=== PATIENT | female | born 1940 | race Caucasian/White ===

== ENCOUNTER 2017-09-06 10:20 | Day surgery (SDC) | payer MEDICARE ==
[~2017-09-06 10:20] MED LIST: AMLO10 PO; ASPI325; ATOR10 PO; Bactrim Ds Tab1 EACH PO; CEPH500 PO; CITA20; CLOP75; CYCL10 PO; DIAZ5 PO; FURO40; FURO40 PO; GABA300 PO; HYDACE10B PO; HYDACE5; HYDACE5 PO; HYDR-86 PO; IBUHYD PO; LEVSOD25; LISI20 PO; METO25 PO; METO25ER; METO25ER PO; METO50; MIRT15 PO; Macrobid 100 M100 MG PO; OXYC1TAB11 PO; PRAV20; PRIM50 PO; ROPI.25 PO; ROSU10TA; SERT100 PO; TEMA30; TEMA30 PO; ZOLP10; Zofran Odt4 MG SL
== END 2017-09-06 14:32 | disposition home or self-care (01) ==
LOC: WOUND 10:20
DX: Z48.00 Encounter for change or removal of nonsurgical wound dressing (principal); T85.79XA Infection and inflammatory reaction due to other internal prosthetic devices, implants and grafts, initial encounter; I10 Essential (primary) hypertension; G47.33 Obstructive sleep apnea (adult) (pediatric)
CPT/HCPCS: G0463

== ENCOUNTER 2017-09-16 12:55 | Emergency (ER) | payer MEDICARE ==
[~2017-09-16] VITALS: Ht 154.9 cm; Wt 86.2 kg
[2017-09-16 14:18] LABS: BASOPHILS ABSOLUTE AUTO 0.03 K/mm3 (0.00-0.23); BASOPHILS PERCENT AUTO 0 % (0-2); EOSINOPHILS ABSOLUTE AUTO 0.41 K/mm3 (0.00-0.68); EOSINOPHILS PERCENT AUTO 4 % (0-6); Hematocrit 42.7 % (33.0-51.0); IMMATURE GRAN ABSOLUTE AUTO 0.01 K/mm3 (0.00-0.10); IMMATURE GRAN PERCENT AUTO 0 % (0-1); LYMPHOCYTES ABSOLUTE AUTO 2.09 K/mm3 (0.84-5.20); LYMPHOCYTES PERCENT AUTO 22 % (21-46); MONOCYTES ABSOLUTE AUTO 0.75 K/mm3 (0.16-1.47); MONOCYTES PERCENT AUTO 8 % (4-13); Mean Corpuscular HGB 30.2 pg (26.0-34.0); Mean Corpuscular HGB Conc 32.8 g/dL (31.5-36.5); Mean Corpuscular Volume 92 fL (80-100); Mean Platelet Volume 11.1 fL (9.1-12.4); NEUTROPHILS PERCENT AUTO 66 % (41-73); Platelet Count 202 K/mm3 (150-400); RDW Coefficient Variation 14.4 % (11.7-14.2); RDW Standard Deviation 48.8 fL (35.1-46.3); Red Blood Cell Count 4.63 M/mm3 (3.80-5.20); White Blood Cell Count 9.69 K/mm3 (4.00-11.30)
[2017-09-16 14:36] LABS: Alanine Aminotransfer (ALT/SGP 25 U/L (12-78); Albumin, Blood 3.6 g/dL (3.4-5.0); Albumin/Globulin Ratio 0.9 (0.8-1.8); Alk Phos 70 U/L (50-136); Anion Gap 7 mmol/L (6-16); Aspartate Aminotrans (AST/SGOT 23 U/L (12-37); Bilirubin, Total 0.7 mg/dL (0.1-1.0); Blood Urea Nitrogen 16 mg/dL (8-24); Bun/Creatinine Ratio 22.7 (12.0-20.0); CO2, Blood 27 mmol/L (21-32); Calcium, Blood 9.4 mg/dL (8.5-10.1); Chloride, Blood 109 mmol/L (98-108); Creatinine, Blood 0.71 mg/dL (0.40-1.00); Globulin, Blood 4.2 g/dL (2.2-4.0); Glomerular Filtration Rate >60 (60-); Glucose, Blood 127 mg/dL (70-99); Potassium, Blood 3.9 mmol/L (3.5-5.5); Sodium, Blood 143 mmol/L (136-145); Total Protein, Blood 7.8 g/dL (6.4-8.2)
[2017-09-16] MEDS ORDERED: Cleocin HCl300 MG PO (17:16)
== END 2017-09-16 17:43 | disposition home or self-care (01) ==
LOC: ER 12:55
PROVIDERS: Physician Assistant
DX: T81.4XXA Infection following a procedure, initial encounter (principal); N61.0 Mastitis without abscess; I10 Essential (primary) hypertension; Z90.13 Acquired absence of bilateral breasts and nipples; Z88.8 Allergy status to other drugs, medicaments and biological substances; Z88.5 Allergy status to narcotic agent; Z79.899 Other long term (current) drug therapy
CPT/HCPCS: 36415; 76642; 80053; 85025; 99284

== ENCOUNTER 2017-09-17 14:32 | Day surgery (SDC) | payer MEDICARE ==
[~2017-09-17 14:32] MED LIST changes: +Cleocin HCl300 MG PO
== END 2017-09-17 15:57 | disposition home or self-care (01) ==
LOC: WOUND 14:32
DX: Z48.00 Encounter for change or removal of nonsurgical wound dressing (principal); T85.79XA Infection and inflammatory reaction due to other internal prosthetic devices, implants and grafts, initial encounter; I10 Essential (primary) hypertension; G47.33 Obstructive sleep apnea (adult) (pediatric)
CPT/HCPCS: 87070; 87075; 87205; G0463

== ENCOUNTER 2017-09-24 09:40 | Day surgery (SDC) | payer MEDICARE | END 2017-09-24 11:09 | disposition home or self-care (01) | LOC: WOUND 09:40 | DX: Z48.00 Encounter for change or removal of nonsurgical wound dressing (principal); T85.79XA Infection and inflammatory reaction due to other internal prosthetic devices, implants and grafts, initial encounter; I10 Essential (primary) hypertension; G47.33 Obstructive sleep apnea (adult) (pediatric) | CPT/HCPCS: G0463 ==

== ENCOUNTER 2017-10-01 14:24 | Day surgery (SDC) | payer MEDICARE | END 2017-10-01 16:26 | disposition home or self-care (01) | LOC: WOUND 14:24 | DX: Z48.00 Encounter for change or removal of nonsurgical wound dressing (principal); T85.79XA Infection and inflammatory reaction due to other internal prosthetic devices, implants and grafts, initial encounter; I10 Essential (primary) hypertension; G47.33 Obstructive sleep apnea (adult) (pediatric) | CPT/HCPCS: G0463 ==

== ENCOUNTER 2017-11-12 03:33 | Day surgery (SDC) | payer MEDICARE | END 2017-11-12 23:18 | disposition home or self-care (01) | LOC: WOUND 03:33 | DX: Z48.00 Encounter for change or removal of nonsurgical wound dressing (principal); T85.79XA Infection and inflammatory reaction due to other internal prosthetic devices, implants and grafts, initial encounter; I10 Essential (primary) hypertension; G47.33 Obstructive sleep apnea (adult) (pediatric) | CPT/HCPCS: G0463 ==

== ENCOUNTER 2017-12-03 12:26 | Inpatient (IN) | payer MEDICARE ==
[~2017-12-03] VITALS: Ht 154.9 cm; Wt 88.6 kg
[2017-12-03 13:01] LABS: Source, Urine Catheter
[2017-12-03 13:10] LABS: BASOPHILS ABSOLUTE AUTO 0.03 K/mm3 (0.00-0.23); BASOPHILS PERCENT AUTO 0 % (0-2); Bilirubin, Urine Neg (Neg); Blood, Urine 1+ (Neg); EOSINOPHILS ABSOLUTE AUTO 0.17 K/mm3 (0.00-0.68); EOSINOPHILS PERCENT AUTO 2 % (0-6); Glucose Qualitative, Urine Neg (Neg); Hematocrit 42.6 % (33.0-51.0); Hemoglobin 13.9 g/dL (11.5-16.0); IMMATURE GRAN ABSOLUTE AUTO 0.03 K/mm3 (0.00-0.10); IMMATURE GRAN PERCENT AUTO 0 % (0-1); Ketones, Urine Neg (Neg); LYMPHOCYTES ABSOLUTE AUTO 1.08 K/mm3 (0.84-5.20); LYMPHOCYTES PERCENT AUTO 11 % (21-46); Leukocyte Esterase, Urine Neg (Neg); MONOCYTES ABSOLUTE AUTO 0.72 K/mm3 (0.16-1.47); MONOCYTES PERCENT AUTO 7 % (4-13); Mean Corpuscular HGB 29.5 pg (26.0-34.0); Mean Corpuscular HGB Conc 32.6 g/dL (31.5-36.5); Mean Corpuscular Volume 90 fL (80-100); Mean Platelet Volume 11.7 fL (9.1-12.4); NEUTROPHILS ABSOLUTE AUTO 7.75 K/mm3 (1.96-9.15); NEUTROPHILS PERCENT AUTO 79 % (41-73); Nitrite, Urine Neg (Neg); Platelet Count 152 K/mm3 (150-400); Protein, Urine 2+ (Neg); RDW Coefficient Variation 12.9 % (11.7-14.2); RDW Standard Deviation 42.8 fL (35.1-46.3); Red Blood Cell Count 4.71 M/mm3 (3.80-5.20); Urobilinogen, Urine NORM (Normal); White Blood Cell Count 9.78 K/mm3 (4.00-11.30)
[2017-12-03 13:22] LABS: Alanine Aminotransfer (ALT/SGP 24 U/L (12-78); Albumin, Blood 3.6 g/dL (3.4-5.0); Albumin/Globulin Ratio 0.9 (0.8-1.8); Alk Phos 67 U/L (50-136); Anion Gap 8 mmol/L (6-16); Aspartate Aminotrans (AST/SGOT 24 U/L (12-37); Bilirubin, Total 0.9 mg/dL (0.1-1.0); Blood Urea Nitrogen 12 mg/dL (8-24); Bun/Creatinine Ratio 14.5 (12.0-20.0); CO2, Blood 26 mmol/L (21-32); Calcium, Blood 9.1 mg/dL (8.5-10.1); Chloride, Blood 108 mmol/L (98-108); Creatinine, Blood 0.83 mg/dL (0.40-1.00); Globulin, Blood 4.2 g/dL (2.2-4.0); Glomerular Filtration Rate >60 (60-); Glucose, Blood 152 mg/dL (70-99); Potassium, Blood 4.1 mmol/L (3.5-5.5); Sodium, Blood 142 mmol/L (136-145); Total Protein, Blood 7.8 g/dL (6.4-8.2)
[2017-12-03 13:23] LABS: Appearance, Urine Clear (Clear); Color, Urine Yellow (P-Yellow)
[2017-12-03 13:26] LABS: Bacteria Not Seen /hpf; International Normalized Ratio 1.02; Prothrombin Time Results 10.6 Sec (9.7-11.5); Red Blood Cells, Urine 0-2 /hpf (0-2); Squamous Epithelial Cells Few /hpf (Few); White Blood Cells, Urine Not Seen /hpf (0-5)
[2017-12-03] MEDS ORDERED: Prinivil10 MG PO (13:53)
[2017-12-03] MEDS ORDERED: FURO40 PO (13:53)
[2017-12-03] MEDS ORDERED: Mirtazapine45 M1 PO (13:53)
[2017-12-03] MEDS ORDERED: AMLO5 PO (14:45)
[2017-12-03] MEDS ORDERED: NAPR500ERA PO (14:46)
[2017-12-03] MEDS ORDERED: LIDO700A20 TOP (14:47)
[2017-12-03] MEDS ORDERED: Prilosec Otc20 MG PO (14:47)
[2017-12-03] MEDS ORDERED: SERT50 PO (14:48)
[2017-12-03] MEDS ORDERED: TEMA15 PO (14:49)
[2017-12-03 16:29] LABS: Influenza A Negative (NEGATIVE); Influenza B Negative (NEGATIVE)
[2017-12-03] MEDS ORDERED: GABA100 PO (20:28)
[2017-12-04 04:34] LABS: Hematocrit 34.1 % (33.0-51.0); Hemoglobin 11.3 g/dL (11.5-16.0); Mean Corpuscular HGB 30.1 pg (26.0-34.0); Mean Corpuscular HGB Conc 33.1 g/dL (31.5-36.5); Mean Corpuscular Volume 91 fL (80-100); Mean Platelet Volume 11.5 fL (9.1-12.4); Platelet Count 118 K/mm3 (150-400); RDW Coefficient Variation 13.1 % (11.7-14.2); Red Blood Cell Count 3.76 M/mm3 (3.80-5.20); White Blood Cell Count 7.67 K/mm3 (4.00-11.30)
[2017-12-04 04:50] LABS: Anion Gap 7 mmol/L (6-16); Blood Urea Nitrogen 13 mg/dL (8-24); Bun/Creatinine Ratio 17.9 (12.0-20.0); CO2, Blood 27 mmol/L (21-32); Calcium, Blood 8.4 mg/dL (8.5-10.1); Chloride, Blood 110 mmol/L (98-108); Creatinine, Blood 0.73 mg/dL (0.40-1.00); Glomerular Filtration Rate >60 (60-); Glucose, Blood 124 mg/dL (70-99); Potassium, Blood 3.7 mmol/L (3.5-5.5); Sodium, Blood 144 mmol/L (136-145)
[2017-12-05] MEDS ORDERED: CEFU500T30 PO (13:05)
[2017-12-05] MEDS ORDERED: AZIT500 PO (13:05)
== END 2017-12-05 17:21 | disposition home or self-care (01) | DRG 193 ==
LOC: ER 12:26 → PCU 14:07 → MEDS 18:15 → PCU 18:35 → MEDS 12-04 12:30 → ENPENDDIS 12-05 10:00 → MEDS 12-05 17:21
PROVIDERS: Internal Medicine; Physician Assistant
PROC: 3E0234Z Introduction of Serum, Toxoid and Vaccine into Muscle, Percutaneous Approach (ICD-10-PCS; principal; 2017-12-03)
DX: J18.9 Pneumonia, unspecified organism (principal); G92 Toxic encephalopathy; E87.2 Acidosis; E86.0 Dehydration; G89.4 Chronic pain syndrome; I10 Essential (primary) hypertension; G47.33 Obstructive sleep apnea (adult) (pediatric); E78.5 Hyperlipidemia, unspecified; R53.1 Weakness; M54.9 Dorsalgia, unspecified; Z91.19 Patient's noncompliance with other medical treatment and regimen; Z23 Encounter for immunization
CPT/HCPCS: 36415; 71046; 80048; 80053; 81001; 83605; 84145; 85025; 85027; 85610; 85730; 87040; 87086; 87804; 93005; 93010; 94760; 96361; 96365; 96368; 96375; 97161; 99285; G8978; G8979; G8980; J0360; J0456; J0696; J1650; J1885; J7030; J7050

== ENCOUNTER 2017-12-13 17:08 | Emergency (ER) | payer MEDICARE ==
[~2017-12-13] VITALS: Ht 152.4 cm; Wt 84.4 kg
[~2017-12-13 17:08] MED LIST changes: +AMLO5 PO; +AZIT500 PO; +CEFU500T30 PO; +GABA100 PO; +LIDO700A20 TOP; +Mirtazapine45 M1 PO; +NAPR500ERA PO; +Prilosec Otc20 MG PO; +Prinivil10 MG PO; +SERT50 PO; +TEMA15 PO
[2017-12-13 18:12] LABS: Source, Urine Clean Catch
[2017-12-13 18:29] LABS: Appearance, Urine Hazy (Clear); Blood, Urine 1+ (Neg); Glucose Qualitative, Urine Neg (Neg); Ketones, Urine Neg (Neg); Leukocyte Esterase, Urine Neg (Neg); Nitrite, Urine Pos (Neg); Protein, Urine 3+ (Neg); Specific Gravity, Urine 1.015 (1.003-1.022); Urobilinogen, Urine 3+ (Normal)
[2017-12-13 19:04] LABS: Bilirubin, Urine 3+ (Neg); Color, Urine Orange (P-Yellow)
[2017-12-13 19:06] LABS: Bacteria Few /hpf; Squamous Epithelial Cells Mod /hpf (Few)
== END 2017-12-13 19:18 | disposition home or self-care (01) ==
LOC: ER 17:08
PROVIDERS: Physician Assistant
DX: R39.15 Urgency of urination (principal); I10 Essential (primary) hypertension; E78.5 Hyperlipidemia, unspecified; Z88.8 Allergy status to other drugs, medicaments and biological substances; Z88.5 Allergy status to narcotic agent; Z79.899 Other long term (current) drug therapy
CPT/HCPCS: 81001; 87086; 99283

== ENCOUNTER → 2017-12-16 | Outpatient (CLI) | payer MEDICARE | END | disposition home or self-care (01) | LOC: OLS 17:12 → LAB SHORT 17:12 | DX: R19.7 Diarrhea, unspecified (principal) | CPT/HCPCS: 87493 ==

== ENCOUNTER 2018-02-27 02:49 | Emergency (ER) | payer MEDICARE ==
[~2018-02-27] VITALS: Ht 152.4 cm; Wt 84.4 kg
[2018-02-27 03:51] LABS: Base Excess Venous 1.9 mmol/L; Bicarbonate Venous 25.4 mmol/L (24.0-30.0); PCO2 Venous 48.1 mmHg (38-42); PO2 Venous 70.8 mmHg (38-42); pH Blood Venous 7.36 (7.34-7.37)
[2018-02-27 03:52] LABS: BASOPHILS ABSOLUTE AUTO 0.04 K/mm3 (0.00-0.23); BASOPHILS PERCENT AUTO 1 % (0-2); EOSINOPHILS ABSOLUTE AUTO 0.36 K/mm3 (0.00-0.68); EOSINOPHILS PERCENT AUTO 5 % (0-6); Hematocrit 40.4 % (33.0-51.0); Hemoglobin 13.3 g/dL (11.5-16.0); IMMATURE GRAN ABSOLUTE AUTO 0.01 K/mm3 (0.00-0.10); IMMATURE GRAN PERCENT AUTO 0 % (0-1); LYMPHOCYTES ABSOLUTE AUTO 1.91 K/mm3 (0.84-5.20); LYMPHOCYTES PERCENT AUTO 28 % (21-46); MONOCYTES PERCENT AUTO 9 % (4-13); Mean Corpuscular HGB Conc 32.9 g/dL (31.5-36.5); Mean Corpuscular Volume 91 fL (80-100); Mean Platelet Volume 10.8 fL (9.1-12.4); NEUTROPHILS ABSOLUTE AUTO 4.03 K/mm3 (1.96-9.15); NEUTROPHILS PERCENT AUTO 58 % (41-73); Platelet Count 182 K/mm3 (150-400); RDW Coefficient Variation 13.4 % (11.7-14.2); RDW Standard Deviation 44.7 fL (35.1-46.3); Red Blood Cell Count 4.44 M/mm3 (3.80-5.20); White Blood Cell Count 6.95 K/mm3 (4.00-11.30)
[2018-02-27 04:13] LABS: Alanine Aminotransfer (ALT/SGP 24 U/L (12-78); Albumin, Blood 3.7 g/dL (3.4-5.0); Albumin/Globulin Ratio 0.9 (0.8-1.8); Alk Phos 67 U/L (50-136); Anion Gap 8 mmol/L (6-16); Aspartate Aminotrans (AST/SGOT 23 U/L (12-37); Bilirubin, Total 0.8 mg/dL (0.1-1.0); Blood Urea Nitrogen 19 mg/dL (8-24); Bun/Creatinine Ratio 22.6 (12.0-20.0); CO2, Blood 27 mmol/L (21-32); Chloride, Blood 108 mmol/L (98-108); Creatinine, Blood 0.84 mg/dL (0.40-1.00); Globulin, Blood 4.2 g/dL (2.2-4.0); Glomerular Filtration Rate >60 (60-); Glucose, Blood 137 mg/dL (70-99); Potassium, Blood 3.6 mmol/L (3.5-5.5); Sodium, Blood 143 mmol/L (136-145); Total Protein, Blood 7.9 g/dL (6.4-8.2); Troponin I <0.015 ng/mL (0.000-0.040)
== END 2018-02-27 04:57 | disposition home or self-care (01) ==
LOC: ER 02:49
PROVIDERS: Emergency Medicine
DX: I11.0 Hypertensive heart disease with heart failure (principal); I50.9 Heart failure, unspecified; R91.8 Other nonspecific abnormal finding of lung field; R09.02 Hypoxemia; G47.33 Obstructive sleep apnea (adult) (pediatric); Z88.5 Allergy status to narcotic agent; Z88.8 Allergy status to other drugs, medicaments and biological substances; Z79.899 Other long term (current) drug therapy; Z79.891 Long term (current) use of opiate analgesic; Z79.2 Long term (current) use of antibiotics; E78.5 Hyperlipidemia, unspecified
CPT/HCPCS: 36415; 80053; 82803; 83880; 84484; 85025; 93005; 93010; 99284

== ENCOUNTER → 2018-03-06 | Outpatient (CLI) | payer MEDICARE ==
[2018-03-06 13:53] LABS: Protein, Urine Quantitative 15.1 mg/dL (0.0-11.9)
[2018-03-06 14:44] LABS: Microalbumin, Urine Quant. 44.4 mg/L (0.000-20.000)
== END | disposition home or self-care (01) ==
LOC: OLS 07:30 → LAB SHORT 07:30 → LAB FUT 03-03 12:10
PROVIDERS: Internal Medicine Nephrology
DX: N18.2 Chronic kidney disease, stage 2 (mild) (principal); D63.1 Anemia in chronic kidney disease; R73.09 Other abnormal glucose; R94.6 Abnormal results of thyroid function studies; R94.5 Abnormal results of liver function studies; R76.9 Abnormal immunological finding in serum, unspecified; E78.00 Pure hypercholesterolemia, unspecified; E55.9 Vitamin D deficiency, unspecified; N25.81 Secondary hyperparathyroidism of renal origin
CPT/HCPCS: 81050; 82043; 84156

== ENCOUNTER → 2018-03-28 | Outpatient (CLI) | payer MEDICARE ==
[2018-03-28 16:13] LABS: Source, Urine Voided
[2018-03-28 20:00] LABS: Appearance, Urine Cloudy (Clear); Bilirubin, Urine Neg (Neg); Blood, Urine Neg (Neg); Color, Urine Yellow (P-Yellow); Glucose Qualitative, Urine Neg (Neg); Ketones, Urine Neg (Neg); Leukocyte Esterase, Urine 1+ (Neg); Nitrite, Urine Neg (Neg); Protein, Urine 1+ (Neg); Urobilinogen, Urine NORM (Normal)
[2018-03-28 20:10] LABS: Bacteria Few /hpf; Squamous Epithelial Cells Few /hpf (Few)
[2018-03-28 20:11] LABS: Amorphous Heavy (0-Heavy)
== END | disposition home or self-care (01) ==
LOC: LAB 16:11 → LAB SHORT 16:11 → LAB FUT 03-26 16:20
PROVIDERS: Internal Medicine
DX: N39.0 Urinary tract infection, site not specified (principal)
CPT/HCPCS: 81001; 87086

== ENCOUNTER 2018-11-05 10:46 | Emergency (ER) | payer MEDICARE ==
[~2018-11-05] VITALS: Ht 152.4 cm; Wt 81.7 kg
[2018-11-05] MEDS ORDERED: Percocet 10-321 EACH PO (11:59)
== END 2018-11-05 12:10 | disposition home or self-care (01) ==
LOC: ER 10:46
DX: Z76.0 Encounter for issue of repeat prescription (principal); I10 Essential (primary) hypertension; R01.1 Cardiac murmur, unspecified

== ENCOUNTER 2019-01-05 10:29 | Emergency (ER) | payer MEDICARE ==
[~2019-01-05] VITALS: Ht 152.4 cm; Wt 81.7 kg
[~2019-01-05 10:29] MED LIST changes: +Percocet 10-321 EACH PO
[2019-01-05 11:04] LABS: BASOPHILS ABSOLUTE AUTO 0.06 K/mm3 (0.00-0.23); BASOPHILS PERCENT AUTO 1 % (0-2); EOSINOPHILS ABSOLUTE AUTO 0.09 K/mm3 (0.00-0.68); EOSINOPHILS PERCENT AUTO 1 % (0-6); Hematocrit 44.8 % (33.0-51.0); Hemoglobin 14.9 g/dL (11.5-16.0); IMMATURE GRAN ABSOLUTE AUTO 0.02 K/mm3 (0.00-0.10); IMMATURE GRAN PERCENT AUTO 0 % (0-1); LYMPHOCYTES ABSOLUTE AUTO 0.96 K/mm3 (0.84-5.20); LYMPHOCYTES PERCENT AUTO 13 % (21-46); MONOCYTES ABSOLUTE AUTO 0.31 K/mm3 (0.16-1.47); MONOCYTES PERCENT AUTO 4 % (4-13); Mean Corpuscular HGB Conc 33.3 g/dL (31.5-36.5); Mean Corpuscular Volume 90 fL (80-100); Mean Platelet Volume 10.1 fL (9.1-12.4); NEUTROPHILS ABSOLUTE AUTO 5.97 K/mm3 (1.96-9.15); NEUTROPHILS PERCENT AUTO 81 % (41-73); Platelet Count 257 K/mm3 (150-400); RDW Coefficient Variation 13.8 % (11.7-14.2); RDW Standard Deviation 45.1 fL (35.1-46.3); Red Blood Cell Count 4.96 M/mm3 (3.80-5.20); White Blood Cell Count 7.41 K/mm3 (4.00-11.30)
[2019-01-05 11:22] LABS: Alanine Aminotransfer (ALT/SGP 21 U/L (12-78); Albumin, Blood 4.4 g/dL (3.4-5.0); Albumin/Globulin Ratio 0.9 (0.8-1.8); Alk Phos 81 U/L (50-136); Anion Gap 9 mmol/L (6-16); Aspartate Aminotrans (AST/SGOT 20 U/L (12-37); Bilirubin, Total 2.1 mg/dL (0.1-1.0); Blood Urea Nitrogen 8 mg/dL (8-24); Bun/Creatinine Ratio 10.4 (12.0-20.0); CO2, Blood 28 mmol/L (21-32); Calcium, Blood 9.9 mg/dL (8.5-10.1); Chloride, Blood 102 mmol/L (98-108); Creatinine, Blood 0.77 mg/dL (0.40-1.00); Globulin, Blood 4.8 g/dL (2.2-4.0); Glomerular Filtration Rate >60 (60-); Glucose, Blood 183 mg/dL (70-99); Potassium, Blood 3.7 mmol/L (3.5-5.5); Sodium, Blood 139 mmol/L (136-145); Total Protein, Blood 9.2 g/dL (6.4-8.2); Troponin I <0.015 ng/mL (0.000-0.040)
[2019-01-05 15:13] LABS: Source, Urine Clean Catch
[2019-01-05 15:20] LABS: Blood, Urine 2+ (Neg); Glucose Qualitative, Urine Neg (Neg); Ketones, Urine 1+ (Neg); Leukocyte Esterase, Urine 2+ (Neg); Nitrite, Urine Pos (Neg); Protein, Urine 4+ (Neg); Urobilinogen, Urine 1+ (Normal)
[2019-01-05] MEDS ORDERED: ONDA4ODT MM (15:37)
[2019-01-05] MEDS ORDERED: LEVFLO500 PO (15:37)
[2019-01-05 15:51] LABS: Bilirubin, Urine 1+ (Neg)
[2019-01-05 15:52] LABS: Appearance, Urine Hazy (Clear); Color, Urine Amber (P-Yellow)
[2019-01-05 15:57] LABS: Bacteria Mod /hpf; Squamous Epithelial Cells Mod /hpf (Few)
[2019-01-05 16:00] LABS: Mucus Light ({null, 0-Heavy})
[2019-01-05 16:06] LABS: Red Blood Cells, Urine 0-2 /hpf (0-2)
== END 2019-01-05 16:00 | disposition home or self-care (01) ==
LOC: ER 10:29
PROVIDERS: Emergency Medicine
DX: J18.1 Lobar pneumonia, unspecified organism (principal); Z88.5 Allergy status to narcotic agent; Z88.8 Allergy status to other drugs, medicaments and biological substances; Z79.899 Other long term (current) drug therapy; Z87.891 Personal history of nicotine dependence; I10 Essential (primary) hypertension; E78.5 Hyperlipidemia, unspecified
CPT/HCPCS: 36415; 71046; 80053; 81001; 84484; 85025; 87086; 93005; 93010; 99285-25

== ENCOUNTER 2019-05-13 08:46 | Emergency (ER) | payer MEDICARE ==
[~2019-05-13] VITALS: Ht 152.4 cm; Wt 81.7 kg
[~2019-05-13 08:46] MED LIST changes: -ATOR10 PO; -GABA100 PO; +LEVFLO500 PO; -MIRT15 PO; +ONDA4ODT MM; -OXYC1TAB11 PO
[2019-05-13 09:04] LABS: Source, Urine Clean Catch
[2019-05-13] MEDS ORDERED: METF500 PO (09:09)
[2019-05-13] MEDS ORDERED: Bactrim Ds Tab1 EACH PO (09:10)
[2019-05-13 09:13] LABS: Blood, Urine 1+ (Neg); Glucose Qualitative, Urine Neg (Neg); Ketones, Urine Neg (Neg); Leukocyte Esterase, Urine 1+ (Neg); Nitrite, Urine Pos (Neg); Protein, Urine 2+ (Neg); Urobilinogen, Urine 2+ (Normal)
[2019-05-13 09:16] LABS: BASOPHILS ABSOLUTE AUTO 0.05 K/mm3 (0.00-0.23); BASOPHILS PERCENT AUTO 1 % (0-2); EOSINOPHILS ABSOLUTE AUTO 0.18 K/mm3 (0.00-0.68); EOSINOPHILS PERCENT AUTO 2 % (0-6); Hematocrit 42.5 % (33.0-51.0); Hemoglobin 14.3 g/dL (11.5-16.0); IMMATURE GRAN ABSOLUTE AUTO 0.02 K/mm3 (0.00-0.10); IMMATURE GRAN PERCENT AUTO 0 % (0-1); LYMPHOCYTES ABSOLUTE AUTO 1.27 K/mm3 (0.84-5.20); LYMPHOCYTES PERCENT AUTO 16 % (21-46); MONOCYTES ABSOLUTE AUTO 0.42 K/mm3 (0.16-1.47); MONOCYTES PERCENT AUTO 5 % (4-13); Mean Corpuscular HGB 30.5 pg (26.0-34.0); Mean Corpuscular HGB Conc 33.6 g/dL (31.5-36.5); Mean Corpuscular Volume 91 fL (80-100); Mean Platelet Volume 11.2 fL (9.1-12.4); NEUTROPHILS PERCENT AUTO 75 % (41-73); Platelet Count 197 K/mm3 (150-400); RDW Coefficient Variation 13.8 % (11.7-14.2); RDW Standard Deviation 45.6 fL (35.1-46.3); Red Blood Cell Count 4.69 M/mm3 (3.80-5.20); White Blood Cell Count 7.74 K/mm3 (4.00-11.30)
[2019-05-13 09:34] LABS: Albumin, Blood 4.2 g/dL (3.4-5.0); Bilirubin, Total 0.9 mg/dL (0.1-1.0); Bun/Creatinine Ratio 24.5 (12.0-20.0); Creatinine, Blood 1.06 mg/dL (0.40-1.00); Globulin, Blood 4.1 g/dL (2.2-4.0); Potassium, Blood 4.8 mmol/L (3.5-5.5); Total Protein, Blood 8.3 g/dL (6.4-8.2)
[2019-05-13 09:44] LABS: Appearance, Urine Clear (Clear); Bilirubin, Urine 2+ (Neg); Color, Urine Orange (P-Yellow)
[2019-05-13 09:46] LABS: Bacteria Few /hpf; Red Blood Cells, Urine 0-2 /hpf (0-2); Squamous Epithelial Cells Many /hpf (Few)
[2019-05-13 09:47] LABS: Mucus Light ({null, 0-Heavy}); Transitional Epithelial Cells Few /hpf ({null, 0-Rare})
[2019-05-13] MEDS ORDERED: Macrobid 100 M100 MG PO (09:53)
[2019-05-13] MEDS ORDERED: ONDA4ODT MM (11:09)
== END 2019-05-13 11:18 | disposition home or self-care (01) ==
LOC: ER 08:46
PROVIDERS: Emergency Medicine
DX: R11.2 Nausea with vomiting, unspecified (principal); R19.7 Diarrhea, unspecified; T38.3X5A Adverse effect of insulin and oral hypoglycemic [antidiabetic] drugs, initial encounter; T36.8X5A Adverse effect of other systemic antibiotics, initial encounter; N39.0 Urinary tract infection, site not specified; I10 Essential (primary) hypertension; Z88.5 Allergy status to narcotic agent; Z88.8 Allergy status to other drugs, medicaments and biological substances; Z79.84 Long term (current) use of oral hypoglycemic drugs; Z79.899 Other long term (current) drug therapy
CPT/HCPCS: 36415; 80053; 81001; 83036; 83690; 85025; 96361; 96374; 99284-25; J2405; J7030

== ENCOUNTER 2019-06-12 12:09 | Observation (INO) | payer MEDICARE ==
[~2019-06-12] VITALS: Ht 152.4 cm; Wt 84.0 kg
[~2019-06-12 12:09] MED LIST changes: +METF500 PO
[2019-06-12 15:51] LABS: BASOPHILS ABSOLUTE AUTO 0.04 K/mm3 (0.00-0.23); BASOPHILS PERCENT AUTO 1 % (0-2); EOSINOPHILS ABSOLUTE AUTO 0.15 K/mm3 (0.00-0.68); EOSINOPHILS PERCENT AUTO 2 % (0-6); Hematocrit 41.5 % (33.0-51.0); Hemoglobin 13.8 g/dL (11.5-16.0); IMMATURE GRAN ABSOLUTE AUTO 0.02 K/mm3 (0.00-0.10); IMMATURE GRAN PERCENT AUTO 0 % (0-1); LYMPHOCYTES ABSOLUTE AUTO 2.04 K/mm3 (0.84-5.20); LYMPHOCYTES PERCENT AUTO 29 % (21-46); MONOCYTES ABSOLUTE AUTO 0.61 K/mm3 (0.16-1.47); MONOCYTES PERCENT AUTO 9 % (4-13); Mean Corpuscular HGB 30.7 pg (26.0-34.0); Mean Corpuscular HGB Conc 33.3 g/dL (31.5-36.5); Mean Corpuscular Volume 92 fL (80-100); Mean Platelet Volume 12.2 fL (9.1-12.4); NEUTROPHILS ABSOLUTE AUTO 4.26 K/mm3 (1.96-9.15); NEUTROPHILS PERCENT AUTO 60 % (41-73); Platelet Count 178 K/mm3 (150-400); RDW Standard Deviation 43.2 fL (35.1-46.3); Red Blood Cell Count 4.49 M/mm3 (3.80-5.20); White Blood Cell Count 7.12 K/mm3 (4.00-11.30)
[2019-06-12 16:08] LABS: Anion Gap 8 mmol/L (6-16); Blood Urea Nitrogen 25 mg/dL (8-24); Bun/Creatinine Ratio 27.6 (12.0-20.0); CO2, Blood 25 mmol/L (21-32); Calcium, Blood 10.5 mg/dL (8.5-10.1); Chloride, Blood 105 mmol/L (98-108); Creatinine, Blood 0.91 mg/dL (0.40-1.00); Glomerular Filtration Rate >60 (60-); Glucose, Blood 131 mg/dL (70-99); Potassium, Blood 4.1 mmol/L (3.5-5.5); Sodium, Blood 138 mmol/L (136-145)
[2019-06-12] MEDS ORDERED: ROPI.25 PO (19:10)
[2019-06-12] MEDS ORDERED: Mirtazapine7.5 MG PO (19:10)
[2019-06-12] MEDS ORDERED: OXYC1TAB11 PO (19:11)
[2019-06-12] MEDS ORDERED: ZESTORETIC 20-121 EA PO (19:12)
[2019-06-12] MEDS ORDERED: GABA300 PO ×2 (19:12→19:40)
[2019-06-12] MEDS ORDERED: PIOG15 PO (19:13)
[2019-06-12] MEDS ORDERED: ATOR40TA PO (19:14)
[2019-06-12] MEDS ORDERED: METO50 PO (19:39)
--- NOTE | 2019-06-12 20:32 | NUR ---
2025 PT ADMITTED TO ROOM 355 PER CART FROM ER.
[2019-06-12] MEDS ORDERED: VITAMIN D34000 UNIT PO (20:42)
[2019-06-12] MEDS ORDERED: Magnesium500 M1 PO (20:43)
[2019-06-13 01:44] LABS: Source, Urine Clean Catch
[2019-06-13 01:49] LABS: Bilirubin, Urine Neg (Neg); Blood, Urine 1+ (Neg); Glucose Qualitative, Urine Neg (Neg); Ketones, Urine 1+ (Neg); Leukocyte Esterase, Urine 1+ (Neg); Nitrite, Urine Neg (Neg); Protein, Urine 1+ (Neg); Specific Gravity, Urine 1.025 (1.003-1.022); Urobilinogen, Urine NORM (Normal)
[2019-06-13 02:00] LABS: Appearance, Urine Hazy (Clear); Color, Urine Yellow (P-Yellow)
[2019-06-13 02:01] LABS: Bacteria Mod /hpf; Mucus Light (0-Heavy); Red Blood Cells, Urine 0-2 /hpf (0-2); Squamous Epithelial Cells Mod /hpf (Few)
--- NOTE | 2019-06-13 04:19 | NUR ---
SHIFT SUMMARY: 79 Y/O FEMALE HAD RESTLESS NIGHT AT TIMES WITH FREQUENT REQUESTS FOR PAIN MEDS, FENTANYL 50MCG IVP GIVEN X 2 AND VALIUM 2.5MG IVP X 1 GIVEN FOR BACK PAIN RATED 6/10 WITH MODERATE RELIEF, PT VOICED, "I NEED TO BE TAKING MY OXYCODONE AND EXTRA DOSES IF NEEDED THIS IS WHAT I'VE TAKEN FOR A LONG TIME"!, PT GIVEN WARM HEATED PAD FOR COMFORT, PT ASSISTED TO BSC BALANCE AND TRANSFER UNSTEADY, DENIES NAUSEA, BED ALARM APPLIED, BED LOW POSITION WITH CALL LIGHT AT SIDE.
--- NOTE | 2019-06-13 05:33 | NUR ---
0430 PT C/O ONGOING BACK PAIN RATED 7/10, DR GAO NOTIFIED WITH ORDERS FOR NORCO 10/325MG, 1-2 TABS, EVERY 6 HOURS, PRN.
[2019-06-13] MEDS ORDERED: CYCL10 PO (11:31)
--- NOTE | 2019-06-13 15:23 | NUR ---
DISCHARGE NOTE IV DC'D WNL. MEDICATIONS FAXED TO PREFERED PHARMACY. PT GIVEN HARDCOPY AND VERBAL INSTRUCTIONS FOR DC RE: DIAGNOSES, MEDICATIONS, FOLLOW UP APPOINTMENTS. PT AND FAMILY HAD NO FURTHER QUESTIONS. PT DRESSED IN PERSONAL CLOTHING. PERSONAL POSSESSIONS GATHERED. CEMETERY LABORER ACCOMPANIED PT OUT VIA WHEELCHAIR TO PERSONAL VEHICLE
== END 2019-06-13 15:00 | disposition home or self-care (01) ==
LOC: ER 12:09 → MEDS 12:10
PROVIDERS: Emergency Medicine; ADMIT Internal Medicine
DX: M62.838 Other muscle spasm (principal); I16.0 Hypertensive urgency; M25.551 Pain in right hip; G89.29 Other chronic pain; M54.9 Dorsalgia, unspecified; I10 Essential (primary) hypertension; E78.5 Hyperlipidemia, unspecified; G25.81 Restless legs syndrome; G62.9 Polyneuropathy, unspecified; G47.30 Sleep apnea, unspecified; Z79.899 Other long term (current) drug therapy; Z88.8 Allergy status to other drugs, medicaments and biological substances; Z88.5 Allergy status to narcotic agent; Z88.1 Allergy status to other antibiotic agents
CPT/HCPCS: 36415; 70450; 72070; 72100; 73502; 80048; 81001; 82330; 83735; 85025; 87077; 87086; 87186; 96361; 96372; 96374; 96375; 96376; 97110; 97161; 97530; 99285-25; A9270; G0378; J0360; J1650; J1885; J3010; J3360; J7030

== ENCOUNTER 2023-05-04 13:05 | Emergency (ER) | payer MEDICARE ==
[~2023-05-04] VITALS: Ht 152.4 cm; Wt 75.3 kg
[~2023-05-04 13:05] MED LIST changes: +ATOR40TA PO; +METO50 PO; +Magnesium500 M1 PO; +Mirtazapine7.5 MG PO; +OXYC1TAB11 PO; +PIOG15 PO; +VITAMIN D34000 UNIT PO; +ZESTORETIC 20-121 EA PO
[2023-05-04 13:43] LABS: Source, Urine Straight Cath
[2023-05-04 13:52] LABS: Appearance, Urine Clear (Clear); Bilirubin, Urine Neg (Neg); Blood, Urine 2+ (Neg); Color, Urine Amber (P-Yellow); Glucose Qualitative, Urine Neg (Neg); Ketones, Urine 1+ (Neg); Leukocyte Esterase, Urine Neg (Neg); Nitrite, Urine Neg (Neg); Protein, Urine 2+ (Neg); Urobilinogen, Urine NORM (Normal)
[2023-05-04 13:57] LABS: BASOPHILS ABSOLUTE AUTO 0.04 K/mm3 (0.00-0.23); BASOPHILS PERCENT AUTO 0 % (0-2); EOSINOPHILS PERCENT AUTO 1 % (0-6); Hematocrit 40.5 % (33.0-51.0); IMMATURE GRAN ABSOLUTE AUTO 0.02 K/mm3 (0.00-0.10); IMMATURE GRAN PERCENT AUTO 0 % (0-1); LYMPHOCYTES ABSOLUTE AUTO 0.78 K/mm3 (0.84-5.20); LYMPHOCYTES PERCENT AUTO 7 % (21-46); MONOCYTES ABSOLUTE AUTO 0.81 K/mm3 (0.16-1.47); MONOCYTES PERCENT AUTO 8 % (4-13); Mean Corpuscular HGB Conc 34.6 g/dL (31.5-36.5); Mean Corpuscular Volume 87 fL (80-100); Mean Platelet Volume 10.3 fL (9.1-12.4); NEUTROPHILS PERCENT AUTO 84 % (41-73); Platelet Count 154 K/mm3 (150-400); RDW Standard Deviation 41.1 fL (35.1-46.3); Red Blood Cell Count 4.66 M/mm3 (3.80-5.20); White Blood Cell Count 10.75 K/mm3 (4.00-11.30)
[2023-05-04 14:04] LABS: Albumin, Blood 3.5 g/dL (3.4-5.0); Albumin/Globulin Ratio 0.9 (0.8-1.8); Bun/Creatinine Ratio 13.2 (12.0-20.0); Calcium, Blood 9.6 mg/dL (8.5-10.1); Creatinine, Blood 0.98 mg/dL (0.40-1.00); Globulin, Blood 4.1 g/dL (2.2-4.0); Potassium, Blood 4.1 mmol/L (3.5-5.5); Total Protein, Blood 7.6 g/dL (6.4-8.2)
[2023-05-04 14:07] LABS: Bacteria Mod /hpf; Hyaline Casts 0-2 /lpf (0-2); Mucus Light (0-Heavy); Squamous Epithelial Cells Many /hpf (Few)
[2023-05-04 14:15] VITALS: BP 121/62
[2023-05-04] MEDS ORDERED: ALBU90OI INH (15:29)
== END 2023-05-05 03:59 | disposition home or self-care (01) ==
LOC: ER 13:05
PROVIDERS: Emergency Medicine
DX: N39.0 Urinary tract infection, site not specified (principal); I10 Essential (primary) hypertension; E78.5 Hyperlipidemia, unspecified; Z79.899 Other long term (current) drug therapy
CPT/HCPCS: 71045; 80053; 81001; 85025; 87086; 94640; 99284-25

== ENCOUNTER 2023-09-03 14:38 | Inpatient (IN) | payer MEDICARE ==
[~2023-09-03] VITALS: Ht 152.4 cm; Wt 82.8 kg
[~2023-09-03 14:38] MED LIST changes: +ALBU90OI INH
[2023-09-03] MEDS ORDERED: Diovan160 MG PO (14:56)
[2023-09-03] MEDS ORDERED: ROPI.25 PO (14:57)
[2023-09-03] MEDS ORDERED: AMLO10 PO (14:57)
[2023-09-03] MEDS ORDERED: ATOR40TA PO (14:57)
[2023-09-03] MEDS ORDERED: CYCL10 PO (14:58)
[2023-09-03] MEDS ORDERED: VITAMIN D32000 UNI2 PO (14:58)
[2023-09-03] MEDS ORDERED: MIRTAZAPINE PO (14:58)
[2023-09-03] MEDS ORDERED: Bystolic20 MG PO (14:59)
[2023-09-03] MEDS ORDERED: PERCOCET 10-321 EAC3 PO (14:59)
[2023-09-03 15:09] LABS: Source, Urine Fem Cath
[2023-09-03 15:19] LABS: BASOPHILS ABSOLUTE AUTO 0.06 K/mm3 (0.00-0.23); BASOPHILS PERCENT AUTO 1 % (0-2); EOSINOPHILS ABSOLUTE AUTO 0.19 K/mm3 (0.00-0.68); EOSINOPHILS PERCENT AUTO 2 % (0-6); Hematocrit 42.1 % (33.0-51.0); IMMATURE GRAN ABSOLUTE AUTO 0.03 K/mm3 (0.00-0.10); IMMATURE GRAN PERCENT AUTO 0 % (0-1); LYMPHOCYTES ABSOLUTE AUTO 0.87 K/mm3 (0.84-5.20); LYMPHOCYTES PERCENT AUTO 7 % (21-46); MONOCYTES PERCENT AUTO 8 % (4-13); Mean Corpuscular HGB 29.7 pg (26.0-34.0); Mean Corpuscular HGB Conc 33.3 g/dL (31.5-36.5); Mean Corpuscular Volume 89 fL (80-100); Mean Platelet Volume 11.3 fL (9.1-12.4); NEUTROPHILS ABSOLUTE AUTO 10.29 K/mm3 (1.96-9.15); NEUTROPHILS PERCENT AUTO 83 % (41-73); Platelet Count 163 K/mm3 (150-400); RDW Standard Deviation 42.8 fL (35.1-46.3); Red Blood Cell Count 4.72 M/mm3 (3.80-5.20); White Blood Cell Count 12.44 K/mm3 (4.00-11.30)
[2023-09-03 15:22] LABS: Albumin, Blood 3.5 g/dL (3.4-5.0); Albumin/Globulin Ratio 0.9 (0.8-1.8); Bilirubin, Total 0.8 mg/dL (0.1-1.0); Calcium, Blood 9.4 mg/dL (8.5-10.1); Creatinine, Blood 0.92 mg/dL (0.40-1.00); Globulin, Blood 4.1 g/dL (2.2-4.0); Total Protein, Blood 7.6 g/dL (6.4-8.2)
[2023-09-03 15:32] LABS: Appearance, Urine Clear (Clear); Bilirubin, Urine Neg (Neg); Blood, Urine Neg (Neg); Color, Urine Yellow (P-Yellow); Glucose Qualitative, Urine Neg (Neg); Ketones, Urine Neg (Neg); Leukocyte Esterase, Urine Neg (Neg); Nitrite, Urine Neg (Neg); Protein, Urine 1+ (Neg); Urobilinogen, Urine NORM (Normal)
[2023-09-03 15:59] LABS: Influenza A, PCR NEGATIVE (NEGATIVE); Influenza B, PCR NEGATIVE (NEGATIVE); Resp Syncytial Virus, PCR NEGATIVE (NEGATIVE); SARS-Cov-2 (COVID-19) PCR, MMC NEGATIVE (NEGATIVE)
[2023-09-03] MEDS ORDERED: GABAPENTIN600 MG PO (17:44)
[2023-09-03] MEDS ORDERED: MIRT15 PO (19:57)
[2023-09-03 22:02] VITALS: BP 153/137
[2023-09-03 23:00] VITALS: BP 138/52
--- NOTE | 2023-09-03 23:12 | NUR ---
PT DAUGHTER "ANTOINE" CALLED ASKING ABOUT MOTHER. 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 PROVIDER WAS NOTIFIED CN WAS NOTIFIED. WILL CONINUTE TO MONITOR.
[2023-09-03 23:16] VITALS: BP 115/36
[2023-09-04 03:00] VITALS: BP 140/57
--- NOTE | 2023-09-04 04:22 | NUR ---
SHIFT SUMMARY: PT IS ALERT AND ORIENTED. PT IS SLIGHTLY ANXIOUS UPON ARRIVAL TO THE FLOOR. PT HAS VISIBLE TREMORS. PT REPORTS CHRONIC BACK PAIN AND IS ASKING FOR PAIN MEDICATION OFTEN. PT RECEIVED TWO DOSES OF NARCAN PRIOR TO ARRIVING ON THE FLOOR FOR BEING LETHARGIC AND POSSIBLY OVER-MEDICATED. DR. GAO WAS CALLED TO DISCUSS PAIN MANAGEMENT, HE ORDERED PRN FENTANYL, NURSING JUDGEMENT DEEMDED IT SAFE AND APPROPRIATE TO MEDICATE THE PATIENT WITH THIS CONSIDERING HER STRONG OPIOID DEPENDENCE. PT WAS ABLE TO GET SOME SLEEP AFTER RECEIVING THIS MEDICATION. PT DENIES NAUSEA, VOMITING, AND SOB. BED IN LOW POSITION, CALL LIGHT WITHIN REACH. WILL CONTINUE TO MONITOR.
[2023-09-04 05:16] LABS: BASOPHILS ABSOLUTE AUTO 0.06 K/mm3 (0.00-0.23); BASOPHILS PERCENT AUTO 0 % (0-2); EOSINOPHILS ABSOLUTE AUTO 0.02 K/mm3 (0.00-0.68); EOSINOPHILS PERCENT AUTO 0 % (0-6); Hematocrit 36.8 % (33.0-51.0); Hemoglobin 12.1 g/dL (11.5-16.0); IMMATURE GRAN ABSOLUTE AUTO 0.06 K/mm3 (0.00-0.10); IMMATURE GRAN PERCENT AUTO 0 % (0-1); LYMPHOCYTES ABSOLUTE AUTO 2.17 K/mm3 (0.84-5.20); LYMPHOCYTES PERCENT AUTO 14 % (21-46); MONOCYTES ABSOLUTE AUTO 1.15 K/mm3 (0.16-1.47); MONOCYTES PERCENT AUTO 7 % (4-13); Mean Corpuscular HGB 29.7 pg (26.0-34.0); Mean Corpuscular HGB Conc 32.9 g/dL (31.5-36.5); Mean Corpuscular Volume 90 fL (80-100); Mean Platelet Volume 10.8 fL (9.1-12.4); NEUTROPHILS ABSOLUTE AUTO 12.12 K/mm3 (1.96-9.15); NEUTROPHILS PERCENT AUTO 78 % (41-73); Platelet Count 147 K/mm3 (150-400); RDW Coefficient Variation 13.2 % (11.7-14.2); RDW Standard Deviation 43.4 fL (35.1-46.3); Red Blood Cell Count 4.08 M/mm3 (3.80-5.20); White Blood Cell Count 15.58 K/mm3 (4.00-11.30)
[2023-09-04 05:36] LABS: Albumin/Globulin Ratio 0.8 (0.8-1.8); Bilirubin, Total 0.8 mg/dL (0.1-1.0); Bun/Creatinine Ratio 14.3 (12.0-20.0); Creatinine, Blood 0.91 mg/dL (0.40-1.00); Globulin, Blood 3.7 g/dL (2.2-4.0); Magnesium, Blood 2.5 mg/dL (1.6-2.4); Potassium, Blood 4.1 mmol/L (3.5-5.5); Total Protein, Blood 6.7 g/dL (6.4-8.2)
[2023-09-04 07:30] VITALS: BP 138/54
--- NOTE | 2023-09-04 13:38 | NUR ---
EDUCATION WITH FAMILY/PATEINT ADVOCATE INFO PTS DAUGHTER IN ROOM AND VERY UPSET ABOUT HER MOTHERS CARE. DAUGHTER QUESTIONING WHY SHE EVER RECIEVED NARCAN. RN EDUCATED THAT IF THEY WERE CONCERNED ABOUT THE PATIENTS BREATHING AND OPIODS ARE ON BOARD, THEN IT IS NOT UNCOMMON FOR NARCAN TO BE GIVEN. PTS DAUGHTER BECAME VERY UPSET, VOICE RAISED AND QUESTIONING HER MOTHERS CARE IN THIS HOSPITAL. STATING "THIS HOSPITAL KILLS PEOPLE". RN ATTEMPTED TO HELP FIGURE OUT WHAT HAD HAPPENED IN THE ER WITH THE USE OF THE ER NOTES. DAUGHTER CONTINUES TO RAISE VOICE AT RN. RN REMINDED HER THAT SHE WAS NOT IN THE ER LAST NIGHT AND IS ONLY TRYING TO HELP. PTS DAUGHTER STATES SHE KNOWS, BUT CONTINUES TO RAISE VOICE AND QUESTIONS "WHAT WILL HAPPEN IF THIS HAPPENS AGAIN?" RN CLAIRFIED "WHAT HAPPENS, NARCAN?". PTS DAUGHTER BECAME UPSET AND RAISED VOICE LOUDER STATING THAT SHE IS GETTING FRUSTRATED THAT RN IS NOT UNDERSTANDING HER QUESTION. DAUGHTER MEANT "WHAT HAPPENS IF SHE STARTS WITHDRAWLING AGAIN?" RN EDUCATED THAT WITHDRAWL SYMPTOMS SHOULD CONTINUE TO IMPROVE NOW THAT HER NOW DOSE OF OXYCODONE IS ORDERED. DAUGHTER STATED "YOU SAY 'SHOULD,' I WANT TO KNOW IF IT WILL HAPPEN AGAIN". RN EDUCATED THAT NOTHING CAN BE FULLY PREDICTED, BUT THAT HER SYMPTOMS SHOULD CONTINUE TO GET BETTER. PATIENT ADVOCATE NUMBER OFFERED AND DAUGHTER REMINDED THAT STAFF WILL NOT BE YELLED AT. DAUGHTER STATES "SOME PEOPLE ARE JUST SENESITIVE". DAUGHTER SUGGESTED SHE LEAVE AND GET SOME AIR, RN AGGREES. PATIENT ADVOCATE LEFT A MESSAGE AND NUMBER WAS WRITTEN ON THE PATIENTS BOARD.
[2023-09-04 16:46] VITALS: BP 132/55
--- NOTE | 2023-09-04 18:39 | NUR ---
SHIFT SUMMARY PT STARTED BACK ON HER HOME DOSE OF PERCOCET AND GABAPENTIN TODAY. TOLERATING BOTH WELL. PT DOES STILL HAVE SOME SHAKINESS WHEN MOVING AROUND. PURE WIK REMOVED. GETTING UP TO BSC TO VOID. BM TODAY. FAMILY SEEN BY PATIENT ADVOCATE, ER CLINICAL COORDINATOR, AND DR. CROWDER FOR UPDATE ON PATIENT AND PLAN OF CARE. NO OTHER ACUTE CHANGES IN ASSESSMENT AT THIS TIME. VS REVIEWED. CALL LIGHT IN REACH. DENIES OTHER NEEDS AT THIS TIME. PT DAUGHTER ANTOINE PLANS TO CALL TO MAKE SURE 9PM DOSE OF PERCOCET IS GIVEN.
[2023-09-04] MEDS ORDERED: GABAPENTIN600 MG PO (18:58)
--- NOTE | 2023-09-04 19:05 | NUR ---
REPORT GIVEN BY YARELY MORENO. PT RESTING IN BED. RA. NO NEEDS AT THIS TIME. WILL CONTINUE TO PROVIDE CARE T/O SHIFT. CALL LT IN REACH.
[2023-09-04 20:34] VITALS: BP 134/50
--- NOTE | 2023-09-04 21:19 | NUR ---
SPOKE TO DAUGHTER ANTOINE. ANTOINE CALLED TO CHECK ON HOW HER MOM WAS DOING AND TO ASK IF SHE GOT HER PAIN MED AT 9 PM AND IF SHE STILL HAD A LOW GRADE FEVER. INFORMED HER DAUGHTER THAT THE PATIENT DID GET HER PAIN MED AT 9PM WELL HER SCHEDULED GABAPENTIN AND ALSO TYLENOL FOR HER LOW GRADE FEVER OF 99.3. INFORMED THE DAUGHTER THAT HER MOM SEEMED TO BE DOING FINE. DAUGHTER WAS APPRECIATIVE THAT SHE RECEIVED HER MEDS AT 9PM AND THANK THIS NURSE. DID LET THE PT KNOW THAT HER DAUGHTER ANTOINE HAD CALLED. PT WAS GRATEFUL AND THANKED THIS NURSE.
[2023-09-05 02:59] VITALS: BP 177/72
--- NOTE | 2023-09-05 03:45 | NUR ---
ASSUMED CARE OF PT.
--- NOTE | 2023-09-05 04:22 | NUR ---
SHIFT SUMMARY: A/O. STATES NEEDS APPROPRIATELY. ON RA. SBA TO BSC. MEDICATE PT EVERY SIX HOURS FOR CHRONIC LOW BACK PAIN. DENIES NAUSEA AND SOB. TYLENOL GIVEN FOR LOW GRADE FEVER OF 99.3. REASSESSED TEMP 98.5. PT RESTED WELL. WILL CONTINUE TO PROVIDE CARE UNTIL SHIFT REPORT TO ONCOMIONG NURSE. CALL LT IN REACH.
[2023-09-05 05:04] LABS: Bun/Creatinine Ratio 14.6 (12.0-20.0); Calcium, Blood 8.9 mg/dL (8.5-10.1); Creatinine, Blood 0.89 mg/dL (0.40-1.00); Potassium, Blood 3.9 mmol/L (3.5-5.5)
[2023-09-05 05:26] LABS: Hematocrit 32.9 % (33.0-51.0); Mean Corpuscular HGB 30.1 pg (26.0-34.0); Mean Corpuscular HGB Conc 33.4 g/dL (31.5-36.5); Mean Corpuscular Volume 90 fL (80-100); Mean Platelet Volume 11.3 fL (9.1-12.4); Platelet Count 128 K/mm3 (150-400); RDW Coefficient Variation 13.2 % (11.7-14.2); RDW Standard Deviation 43.7 fL (35.1-46.3); Red Blood Cell Count 3.65 M/mm3 (3.80-5.20); White Blood Cell Count 7.33 K/mm3 (4.00-11.30)
[2023-09-05 07:45] VITALS: BP 147/64
[2023-09-05] MEDS ORDERED: Aspir 8181 MG PO (10:50)
[2023-09-05] MEDS ORDERED: THERA-D2000 UNIT PO (11:18)
[2023-09-05] MEDS ORDERED: DOXY100 PO (11:19)
--- NOTE | 2023-09-05 11:43 | NUR ---
DISCHARGE NOTE PT DISCHARGED TO HOME, PICKED UP BY HER DAUGHTER. IV'S REMOVED AND TELE RETURNED. DISCHARGE INFORMATION AND EDUCATION PROVIDED. PERSONAL BELONGINGS RETURNED. MEDICATIONS FAXED TO THE PHARMACY OF HER CHOICE.
== END 2023-09-05 11:47 | disposition home or self-care (01) | DRG 193 ==
LOC: ER 14:38 → ERHOLD 14:39 → MEDS 14:39
PROVIDERS: Emergency Medicine; Internal Medicine; Nurse Practitioner Acute Care; ADMIT Internal Medicine
DX: J18.9 Pneumonia, unspecified organism (principal); G92.8 Other toxic encephalopathy; J96.01 Acute respiratory failure with hypoxia; F11.20 Opioid dependence, uncomplicated; R65.10 Systemic inflammatory response syndrome (SIRS) of non-infectious origin without acute organ dysfunction; N39.0 Urinary tract infection, site not specified; I10 Essential (primary) hypertension; G47.33 Obstructive sleep apnea (adult) (pediatric); M54.9 Dorsalgia, unspecified; E78.5 Hyperlipidemia, unspecified; E27.9 Disorder of adrenal gland, unspecified; G25.81 Restless legs syndrome; G89.29 Other chronic pain; Z88.5 Allergy status to narcotic agent; Z88.0 Allergy status to penicillin; Z88.1 Allergy status to other antibiotic agents; Z88.8 Allergy status to other drugs, medicaments and biological substances; Z79.899 Other long term (current) drug therapy; Z11.52 Encounter for screening for COVID-19; Z99.81 Dependence on supplemental oxygen
CPT/HCPCS: 0241U; 36415; 70450; 71045; 71260; 80048; 80053; 83605; 83690; 83735; 83880; 84145; 84443; 84484; 85025; 85027; 93005; 93010; 94760; 94762; 96361; 96365-59; 96375-59; 99285-25; A9270; J0456; J0692; J0696; J1650; J2310; J3010; J3475; J7030; J7040; J7050; P9612; Q9967